=== PATIENT | female | born 1980 | race Caucasian/White ===

== ENCOUNTER 2019-06-26 03:03 | Emergency (ER) | payer BC, OTHER ==
[2019-06-26] MEDS ORDERED: KETOROLAC 30 MG/ML INJ ONE (03:55)
--- NOTE | 2019-06-26 05:12 | ER ---
Nurse's Notes [facility] Name: Lu Martin Age: 38 yrs Sex: Female : 1980 Arrival Date: 06/26/2019 Time: 03:07 Bed 16 Private MD: Diagnosis: Sprain of lateral collateral ligament of right knee Presentation: 06/26 03:19 Presenting complaint: Patient states: I was walking up the steps a week and a half ago jb4 and felt a pop in my right knee. The pain has been steadily getting worse, tonight I tried to go to the bathroom and it flared up. I could not get back to get in my bed. Transition of care: patient was not received from another setting of care. Onset of symptoms was June 15, 2019. Risk Assessment: Do you want to hurt yourself or someone else? Patient reports no desire to harm self or others. Initial Sepsis Screen: Does the patient meet any 2 criteria? HR > 90 bpm. Yes Does the patient have a suspected source of infection? No. Patient's initial sepsis screen is negative. Care prior to arrival: None. 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 - Coronavirus screen:: The patient has NOT traveled to [place] in the past 14 days. Proceed with normal triage process as indicated. The patient has NOT had contact with known/suspected case of Coronavirus? Proceed with normal triage procedures. - Social history:: Smoking status: Patient reports the use of cigarette tobacco products, denies chronic smoking, but will smoke occasionally, Patient/guardian denies using alcohol, street drugs. - Ebola Screening: : No symptoms or risks identified at this time. Screenin:26 Abuse screen: Denies threats or abuse. Nutritional screening: No deficits noted. jb4 Tuberculosis screening: No symptoms or risk factors identified. Fall Risk None identified. Assessment: 03:26 General: Appears in no apparent distress. uncomfortable, Behavior is calm, cooperative, jb4 appropriate for age. Pain: Complains of pain in right knee Pain radiates to right foot and right leg Pain currently is 10 out of 10 on a pain scale. Quality of pain is described as throbbing, Pain began 1.5 weeks ago Is continuous. Neuro: Level of Consciousness is awake, alert, obeys commands, Oriented to person, place, time, situation. Cardiovascular: Patient's skin is warm and dry. Respiratory: Airway is patent Respiratory effort is even, unlabored, Respiratory pattern is regular, symmetrical. GI: No signs and/or symptoms were reported involving the gastrointestinal system. : No signs and/or symptoms were reported regarding the genitourinary system. EENT: No signs and/or symptoms were reported regarding the EENT system. Derm: Skin is intact, Skin is pink, warm \T\ dry. Musculoskeletal: Circulation, motion, and sensation intact. Range of motion: limited in right knee. 04:28 Reassessment: Patient appears in no apparent distress at this time. Patient and/or jb4 family updated on plan of care and expected duration. Pain level reassessed. Patient is alert, oriented x 3, equal unlabored respirations, skin warm/dry/pink. PT given a pillow and blanket per request Patient states feeling better. Vital Signs: 03:25 BP 145 / 83; Pulse 104; Resp 16; Temp 97.9(O); Pulse Ox 100% on R/A; Weight 117.93 kg jb4 (R); Height 5 ft. 11 in. (180.34 cm); Pain 10/10; 04:15 BP 132 / 77; Pulse 80; Resp 16; Pulse Ox 96% on R/A; jb4 03:25 Body Mass Index 36.26 (117.93 kg, 180.34 cm) jb4 ED Course: 03:07 Patient arrived in ED. ds1 03:14 Vik Mg, [place] is Primary Nurse. jb4 03:21 Triage completed. jb4 03:22 Ender Moeller MD is Attending Physician. tw4 03:25 Arm band placed on right wrist. jb4 03:26 Patient has correct armband on for positive identification. Bed in low position. Call jb4 light in reach. Side rails up X 1. Pulse ox on. NIBP on. 05:08 Ron Escoto MD is Referral Physician. tw4 05:08 Abdulkadir Agrawal MD is Referral Physician. tw4 05:08 Denton Sullivan MD is Referral Physician. tw4 05:08 Diego Bright MD is Referral Physician. tw4 05:18 No provider procedures requiring assistance completed. Patient did not have IV access jb4 during this emergency room visit. Knee immobilizer applied on right knee. Administered Medications: 04:21 Drug: TORadol 60 mg Route: IM; Site: left gluteus; jb4 05:13 Follow up: Response: No adverse reaction; Pain is decreased jb4 04:27 Not Given (Patient Refused): [place] 5 mg-325 mg 2 tabs PO once; RASS on ADMIN: Combtv4, jb4 Very Agttd3, Agttd2, Rstlss1, AlertClm0, Drwsy-1, Lt Sdtn-2, Mod Sdtn-3, Dp Sdtn-4, UnArsble-5 Outcome: 05:09 Discharge ordered by . tw4 05:18 Discharged to home ambulatory, with family. 4 05:18 Condition: stable 05:18 Discharge instructions given to patient, family, Instructed on discharge instructions, follow up and referral plans. medication usage, Demonstrated understanding of instructions, follow-up care, medications, Prescriptions given X 2. 05:20 Patient left the ED. jb4 Signatures: Alicia Schneider ds1 Vik Mg, RN RN jb4 Ender Moeller MD MD tw4
--- NOTE | 2019-06-26 05:12 | EDPHYS ---
Physician Documentation [facility] Name: Lu Martin Age: 38 yrs Sex: Female : 1980 Arrival Date: 06/26/2019 Time: 03:07 Bed 16 Private MD: ED Physician Ender Moeller HPI: 06/26 04:11 This 38 yrs old Female presents to ER via Ambulatory with complaints of Knee tw4 Pain. 04:11 The patient presents with an injury, pain, that is chronic. The complaints affect the tw4 right knee. Context: The problem was sustained at home, resulted from a mis-step, the patient can partially bear weight, the patient is not able to ambulate. Onset: The symptoms/episode began/occurred 2 week(s) ago. Modifying factors: The symptoms are alleviated by nothing. the symptoms are aggravated by nothing. The patient has not experienced similar symptoms in the past. 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 - Coronavirus screen:: The patient has NOT traveled to [place] in the past 14 days. Proceed with normal triage process as indicated. The patient has NOT had contact with known/suspected case of Coronavirus? Proceed with normal triage procedures. - Social history:: Smoking status: Patient reports the use of cigarette tobacco products, denies chronic smoking, but will smoke occasionally, Patient/guardian denies using alcohol, street drugs. - Ebola Screening: : No symptoms or risks identified at this time. ROS: 04:11 Constitutional: Negative for fever, chills, and weight loss, Eyes: Negative for injury, tw4 pain, redness, and discharge, Cardiovascular: Negative for chest pain, palpitations, and edema, Respiratory: Negative for shortness of breath, cough, wheezing, and pleuritic chest pain, Abdomen/GI: Negative for abdominal pain, nausea, vomiting, diarrhea, and constipation, Back: Negative for injury and pain, Skin: Negative for injury, rash, and discoloration, Neuro: Negative for headache, weakness, numbness, tingling, and seizure, Psych: Negative for depression, anxiety, suicide ideation, homicidal ideation, and hallucinations. 04:11 MS/extremity: Positive for injury or acute deformity, decreased range of motion, pain, rash, tenderness, Negative for abrasion, bite, contusion, deformity, ecchymosis, erythema, paresthesias, puncture. Exam: 04:11 Constitutional: This is a well developed, well nourished patient who is awake, alert, tw4 and in no acute distress. Head/Face: Normocephalic, atraumatic. Chest/axilla: Normal chest wall appearance and motion. Nontender with no deformity. No lesions are appreciated. Cardiovascular: Regular rate and rhythm with a normal S1 and S2. No gallops, murmurs, or rubs. Normal PMI, no JVD. No pulse deficits. Respiratory: Lungs have equal breath sounds bilaterally, clear to auscultation and percussion. No rales, rhonchi or wheezes noted. No increased work of breathing, no retractions or nasal flaring. Abdomen/GI: Soft, non-tender, with normal bowel sounds. No distension or tympany. No guarding or rebound. No evidence of tenderness throughout. Neuro: Awake and alert, GCS 15, oriented to person, place, time, and situation. Cranial nerves II-XII grossly intact. Motor strength 5/5 in all extremities. Sensory grossly intact. Cerebellar exam normal. Normal gait. Psych: Awake, alert, with orientation to person, place and time. Behavior, mood, and affect are within normal limits. 04:11 Musculoskeletal/extremity: Extremities: noted in the lateral aspect of right knee, medial aspect of right knee and right knee: decreased ROM, pain, swelling, tenderness, There is no evidence of contusion, deformity, ecchymosis, erythema, laceration, puncture, rash, ROM: limited active range of motion due to pain, limited passive range of motion due to pain, in the lateral aspect of right knee, medial aspect of right knee and right knee, Circulation is intact in all extremities. Sensation intact. Joints: Vital Signs: 03:25 BP 145 / 83; Pulse 104; Resp 16; Temp 97.9(O); Pulse Ox 100% on R/A; Weight 117.93 kg jb4 (R); Height 5 ft. 11 in. (180.34 cm); Pain 10/10; 04:15 BP 132 / 77; Pulse 80; Resp 16; Pulse Ox 96% on R/A; jb4 03:25 Body Mass Index 36.26 (117.93 kg, 180.34 cm) jb4 MDM: 03:22 Patient medically screened. tw4 05:06 Differential diagnosis: dislocation, contusion, abrasion, tendonitis. Data reviewed: tw4 vital signs, nurses notes. Data interpreted: Pulse oximetry: Interpretation: normal. Test interpretation: by ED physician or midlevel provider: plain radiologic studies. Counseling: I had a detailed discussion with the patient and/or guardian regarding: the historical points, exam findings, and any diagnostic results supporting the discharge/admit diagnosis, radiology results. Medication response: Toradol markedly relieved the patient's pain. Response to treatment: and as a result, I will discharge patient, administer pain medication, acetaminophen, ibuprofen. Special discussion: I discussed with the patient/guardian in detail that at this point there is no indication for admission to the hospital. It is understood, however, that if the symptoms persist or worsen the patient needs to return immediately for re-evaluation. 06/26 04:25 Order name: Knee Right 3 View XRAY tw4 06/26 04:53 Order name: Knee Immobilizer; Complete Time: 05:13 tw4 Administered Medications: 04:21 Drug: TORadol 60 mg Route: IM; Site: left gluteus; 4 05:13 Follow up: Response: No adverse reaction; Pain is decreased jb4 04:27 Not Given (Patient Refused): [place] 5 mg-325 mg 2 tabs PO once; RASS on ADMIN: Combtv4, jb4 Very Agttd3, Agttd2, Rstlss1, AlertClm0, Drwsy-1, Lt Sdtn-2, Mod Sdtn-3, Dp Sdtn-4, UnArsble-5 Disposition: 06/26/19 05:09 Discharged to Home. Impression: Sprain of lateral collateral ligament of right knee. - Condition is Stable. - Discharge Instructions: How to Use a Knee Brace, Knee Effusion, Knee Immobilizer, Knee Sprain, Knee Pain, Combined Knee Ligament Sprain. - Prescriptions for Ibuprofen 800 mg Oral Tablet - take 1 tablet by ORAL route every 8 hours As needed take with food; 30 tablet. Tylenol- Codeine #3 300-30 mg Oral Tablet - take 2 tablets by ORAL route every 6 hours As needed; 15 tablet. - Medication Reconciliation Form, Thank You Letter, Antibiotic Education, Prescription Opioid Use form. - Follow up: Ron Escoto MD; When: Upon discharge from the Emergency Department; Reason: If symptoms return, Recheck today's complaints, Continuance of care, Re-evaluation by your physician. Follow up: Abdulkadir Agrawal MD; When: Upon discharge from the Emergency Department; Reason: If symptoms return, Recheck today's complaints, Continuance of care, Re-evaluation by your physician. Follow up: Denton Sullivan MD; When: Upon discharge from the Emergency Department; Reason: If symptoms return, Recheck today's complaints, Continuance of care, Re-evaluation by your physician. Follow up: Diego Bright MD; When: Upon discharge from the Emergency Department; Reason: If symptoms return, Recheck today's complaints, Continuance of care, Re-evaluation by your physician. - Problem is an ongoing problem. - Symptoms have improved. Signatures: Dispatcher [employer] EDVik Woodson, RN RN jb4 Ender Moeller MD MD tw4 Corrections: (The following items were deleted from the chart) 05:20 05:09 06/26/2019 05:09 Discharged to Home. Impression: Sprain of lateral collateral jb4 ligament of right knee. Condition is Stable. Forms are Medication Reconciliation Form, Thank You Letter, Antibiotic Education, Prescription Opioid Use. Follow up: Ron Escoto; When: Upon discharge from the Emergency Department; Reason: If symptoms return, Recheck today's complaints, Continuance of care, Re-evaluation by your physician. Follow up: Abdulkadir Agrawal; When: Upon discharge from the Emergency Department; Reason: If symptoms return, Recheck today's complaints, Continuance of care, Re-evaluation by your physician. Follow up: Denton Sullivan; When: Upon discharge from the Emergency Department; Reason: If symptoms return, Recheck today's complaints, Continuance of care, Re-evaluation by your physician. Follow up: Diego Bright; When: Upon discharge from the Emergency Department; Reason: If symptoms return, Recheck today's complaints, Continuance of care, Re-evaluation by your physician. Problem is an ongoing problem. Symptoms have improved. tw4
--- NOTE | 2019-06-26 10:03 | RAD REPORT ---
EXAM DESCRIPTION: RAD - Knee Right 3 View - 06/26/2019 5:11 am CLINICAL HISTORY: PAIN COMPARISON: Knee Right 2 View dated 10/12/2018 FINDINGS: No fracture, dislocation or periosteal reaction.Minimal joint effusion is evident. No join t space narrowing present there are spurs along the tibial spine and intercondylar notch as well as s ome mild marginal spurs in the lateral compartment. Spurring is present at the quadriceps tendon shivani chment. No foreign body or other soft tissue abnormality. IMPRESSION: Knee degenerative changes are present not substantially different from the September 2018 stud y. No acute bone or joint finding seen. Clinical concerns for internal derangement or occult bony injury could be further assessed with MR im aging.
[2019-06-27 17:01] VITALS: TEMP 97.9
[2019-06-27 17:03] VITALS: BP 132/77; O2SAT 96
== END 2019-06-26 05:20 | disposition home or self-care (01) ==
LOC: ER 03:03
DX: S83.421A Sprain of lateral collateral ligament of right knee, initial encounter (principal); F17.210 Nicotine dependence, cigarettes, uncomplicated; X58.XXXA Exposure to other specified factors, initial encounter; Y93.9 Activity, unspecified; Y92.009 Unspecified place in unspecified non-institutional (private) residence as the place of occurrence of the external cause; F34.1 Dysthymic disorder; Z88.5 Allergy status to narcotic agent
CPT/HCPCS: 96372; 99284